=== PATIENT | female | born 1990 | race Caucasian/White ===

== ENCOUNTER 2023-08-14 18:24 | Emergency (ER) | payer SELFPAY ==
[~2023-08-14] VITALS: Ht 154.9 cm; Wt 73.0 kg
[2023-08-14 18:26] VITALS: BP 129/89; PULSE 124; RESP 16; TEMP 98.4; O2SAT 98
== END 2023-08-14 21:10 | disposition left against medical advice (07) ==
LOC: ER 18:24
DX: Z53.21 Procedure and treatment not carried out due to patient leaving prior to being seen by health care provider (principal)
CPT/HCPCS: 99281